=== PATIENT | male | born 2000 | race African-American/Black ===

== ENCOUNTER 2020-03-12 12:41 | Emergency (ER) | payer OTHER ==
[~2020-03-12] VITALS: Ht 188 cm; Wt 100.5 kg
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
[2020-03-12 14:54] VITALS: BP 128/71
== END 2020-03-12 15:01 | disposition home or self-care (01) ==
LOC: M ED 12:41 → EDBD 12:41 → M ED 15:01
DX: S16.1XXA Strain of muscle, fascia and tendon at neck level, initial encounter (principal); S39.012A Strain of muscle, fascia and tendon of lower back, initial encounter; V49.49XA Driver injured in collision with other motor vehicles in traffic accident, initial encounter; Y92.410 Unspecified street and highway as the place of occurrence of the external cause

== ENCOUNTER 2021-01-25 10:55 | Emergency (ER) | payer OTHER ==
[~2021-01-25] VITALS: Ht 188 cm; Wt 116.1 kg
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
[2021-01-25] MEDS: ACETAMINOPHEN 500 MG TAB PO ONE (14:59)
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
[2021-01-25 16:20] VITALS: BP 132/74
== END 2021-01-25 16:22 | disposition home or self-care (01) ==
LOC: M ED 10:55
DX: Z04.1 Encounter for examination and observation following transport accident (principal); S00.03XA Contusion of scalp, initial encounter; S50.12XA Contusion of left forearm, initial encounter; S46.912A Strain of unspecified muscle, fascia and tendon at shoulder and upper arm level, left arm, initial encounter; S16.1XXA Strain of muscle, fascia and tendon at neck level, initial encounter; V43.52XA Car driver injured in collision with other type car in traffic accident, initial encounter; W22.10XA Striking against or struck by unspecified automobile airbag, initial encounter; Y92.89 Other specified places as the place of occurrence of the external cause; Y93.89 Activity, other specified; Y99.8 Other external cause status

== ENCOUNTER 2022-02-23 23:02 | Emergency (ER) | payer OTHER ==
[~2022-02-23] VITALS: Ht 188 cm; Wt 119.2 kg
[2022-02-23 23:03] VITALS: BP 130/94
== END 2022-02-24 01:44 | disposition left against medical advice (07) ==
LOC: M ED 23:02
DX: Z53.29 Procedure and treatment not carried out because of patient's decision for other reasons (principal)